=== PATIENT | female | born 1995 | race Caucasian/White ===

== ENCOUNTER 2023-10-09 20:05 | Emergency (ER) | payer SELFPAY ==
[2023-10-09 20:06] VITALS: BMI 19.0
[2023-10-09 20:18] VITALS: BP 135/99
[2023-10-09 20:36] LABS: % Eosinophils 4.3 % (0-6); % Immature Granulocytes 0.1 % (0-0.5); % Lymphocytes 28.1 % (20.5-51.1); % Monocytes 5.9 % (1.7-9.3); % Neutrophils 60.6 % (42.2-75.2); Absolute Basophils 0.1 10^3/uL (0-0.2); Absolute Eosinophils 0.3 10^3/uL (0-0.7); Absolute Lymphocytes 2.3 10^3/uL (1.2-3.4); Absolute Monocytes 0.5 10^3/uL (0.1-0.6); Absolute Neutrophils 4.9 10^3/uL (1.4-6.5); Hematocrit 40.6 % (37.0-47.0); Mean Corp Hgb Conc. 36.9 g/dL (33.0-37.0); Mean Corpuscular Hgb 32.4 pg (27.0-31.0); Mean Corpuscular Volume 87.7 fL (81.0-99.0); Mean Platelet Volume 8.6 fL (7.4-10.4); Nucleated Red Blood Cells % 0 %; Platelet Count 358 10^3/uL (130-400); Red Blood Cell Count 4.63 10^6/uL (4.20-5.40); Red Cell Dist. Width 11.9 % (11.5-14.5)
[2023-10-09 20:37] LABS: Urine Albumin Negative (Neg - Trace); Urine Bilirubin Negative (Negative); Urine Character Slightly Cloudy (Clear); Urine Color Straw; Urine Glucose Negative (Negative); Urine Ketone Negative (Negative); Urine Leukocyte Negative (Negative); Urine Nitrite Negative (Negative); Urine Occult Blood Negative (Negative); Urine Specific Gravity 1.015 (<1.030); Urine Urobilinogen Negative (Neg - 1+)
[2023-10-09 20:46] LABS: HCG, Serum Qualitative Screen Negative
[2023-10-09 20:52] LABS: ALT (SGPT) 15 U/L (0-35); AST (SGOT) 21 U/L (14-36); Albumin 4.5 g/dl (3.5-5.0); Alkaline Phosphatase 70 U/L (38-126); Blood Urea Nitrogen 6 mg/dl (7-17); Calcium 10.2 mg/dl (8.4-10.2); Carbon Dioxide 26 mmol/L (22-30); Chloride 98 mmol/L (98-107); Glucose 102 mg/dl (70-99); Potassium 4.1 mmol/L (3.5-5.1); Sodium 137 mmol/L (135-145); Total Bilirubin 0.5 mg/dl (0.2-1.3); Total Protein 7.7 g/dl (6.3-8.2); eGFR > 60.00
[2023-10-09 20:54] LABS: Lipase 146 U/L (23-300)
[2023-10-09 23:22] VITALS: BP 139/90
[2023-10-10 01:55] VITALS: BP 128/68
--- NOTE | 2023-10-10 02:13 | ED.GENMED ---
History of Present Illness
General
Chief Complaint: Abdominal Pain
Source: patient
Exam Limitations: none
Time Seen by Provider: 10/09/23 23:19
Nursing documentation reviewed up to this point in time: agreed with
Travel History
Have you had any contact with someone who has COVID-19?: No
Do you have any symptoms of coronavirus? Fever > 100 degrees, chills, cough, shortness of breath, sore throat, loss of taste or smell, muscle aches, or headache?: No
History of Present Illness
History of Present Illness:
28-year-old female with Khadar history of asthma and eosinophilic esophagitis presenting to the emergency department today with concerns of abdominal discomfort occurring a few hours prior to arrival to the emergency department. Patient denies any
nausea vomiting diarrhea no fevers had similar episodes in the past any known diagnosis of this.
Review of Systems
Review of Systems
Allergies reviewed?: Yes
All Other Systems: ROS reviewed and negative except as documented in HPI and ROS
Phy Exam
Physical Exam
Physical Exam:
GENERAL: Alert , in no apparent distress
EYE: pupils equal and reactive
NECK: Supple, no significant adenopathy.
ENT: o/p clr, mmm.
CARDIAC: Regular rate and rhythm .
LUNGS: Clear breath sounds bilaterally, no acute respiratory distress, no wheezes/rales/rhonchi
ABDOMEN: Mild diffuse abdominal tenderness
NEUROLOGICAL: Alert and oriented, no focal neuro deficits
SKIN: Warm and dry, skin intact.
MUSCULOSKELETAL: No edema, well perfused.
PSYCH: Normal and appropriate interaction.
Course
Orders/Labs/Results
Orders:
Orders
10/09/23 20:21
Test Result ONCE
10/09/23 20:30
Complete Blood Count/With Diff Urgent
Comprehensive Metabolic Panel Urgent
HCG, Serum Qualitative Screen Urgent
Lipase Urgent
Urinalysis Reflex To Culture Urgent
Date Specimen was Collected: 10/09/23
Time Specimen was Collected: 20:21
10/10/23 00:05
CT Abd/Pel (IV only)-DH only Urgent
Comment:
Reason For Exam: diffuse abd pain
Abnormal Lab Results
10/09/23
20:30
MCH 32.4 H pg
(27.0-31.0)
BUN 6 L mg/dl
(7-17)
Glucose 102 H mg/dl
(70-99)
10/09/23 20:30
10/09/23 20:30
Vital Signs
Initial and Last Documented VS:
Initial Vital Signs
Temp Pulse Resp BP Pulse Ox
98.5 F 89 16 135/99 100
10/09/23 20:18 10/09/23 20:18 10/09/23 20:18 10/09/23 20:18 10/09/23 20:18
Last Documented Vital Signs
Temp Pulse Resp BP Pulse Ox
98.5 F 74 18 128/68 98
10/09/23 20:18 10/10/23 01:55 10/10/23 01:55 10/10/23 01:55 10/10/23 01:55
MDM/Problems Addressed
MDM/Problems Addressed:
28-year-old female presenting to the emergency department today with concerns of abdominal discomfort occurring a few hours prior to arrival to the emergency department. Upon arrival vital signs are normal patient generally well-appearing no
obvious distress. Does have reproducible tenderness throughout the abdomen but somewhat minimal no guarding. Urinalysis normal. CT scan obtained without acute findings. Patient with gradually improving symptoms throughout ER stay no evidence of
emergent pathology stable for outpatient management return precautions given.
*Critical Care Note
Total Time (30-74mins, 75-104mins- exclusive of procedures): Not Applicable
ED Attending Note
-
Portions of this chart may have been created with voice recognition software.� Occasional wrong word or��sound alike� substitutions may have occurred due to the inherent limitations of voice recognition software.
Discharge Plan
Departure
Patient Disposition: Home (Routine Discharge)
Date of Disposition: 10/10/23
Time of Disposition: 02:15
Patient with high blood pressure during this ER visit?: No
Condition: Good
Covid-19: Not Applicable
Discharge Problem:
Abdominal pain
Instructions: Abdominal Pain
Prescriptions:
New
dicyclomine 10 mg capsule
10 mg PO QID PRN (Reason: abdominal pain) Qty: 7 0RF
Referrals:
Danae Foley MD [Family Provider] -
Activity Restrictions/Additional Instructions:
You came the emergency department today for concerns of abdominal discomfort. Here you had a reassuring evaluation. Please follow closely with the primary care doctor. Return to the emergency department for any worsening, new or concerning
symptoms.
Interventions
Interventions:
*Risk Screen - Suicide Last Done: 10/09/23 20:18
*General Assessment Last Done: 10/09/23 20:18
*Neglect/Abuse Screening Last Done: 10/09/23 20:18
ED- Fall Risk Assessment Last Done: 10/09/23 23:22
*ED COVID-19 Vaccine History Last Done: 10/09/23 20:18
LQ-Goxesv-Aagkuzfeti Assessment Last Done: 10/09/23 23:22
== END 2023-10-10 03:08 | disposition home or self-care (01) ==
LOC: EMR 20:05
PROVIDERS: Student in an Organized Health Care Education/Training Program; EMERGENCY PHYSICIAN Emergency Medicine; FAMILY PHYSICIAN Internal Medicine
DX: R10.9 Unspecified abdominal pain (principal); J45.909 Unspecified asthma, uncomplicated; K20.0 Eosinophilic esophagitis
CPT/HCPCS: 99284; 74177; 80053; 81003; 83690; 84703; 85025; Q9967